=== PATIENT | female | born 1995 | race African-American/Black ===

== ENCOUNTER 2017-10-09 03:29 | Inpatient (IN) ==
--- NOTE | 2017-10-09 04:08 | ED ---
HPI General Stated complaint: Psych Eval [facility] Time Seen by Provider: 10/09/17 04:04 History of Present Illness HPI narrative: This is a 22-year-old female who presents under [place] act [place] by the [employer]. According to her paperwork she ingested 26 Advil tablets in attempt to hurt herself. The patient reports that she has been feeling depressed for "a long time" and tonight she was feeling worse. She denies doing anything else to hurt herself. She was initially seen at [facility] medical. Prior to being transferred here for psychiatric evaluation. Symptoms are moderate with no obvious aggravating or alleviating factors. Denies any drug or alcohol use, homicidal ideation, hallucinations. She has no medical complaints at this time. Related Data Previous Rx's Medication Instructions Recorded naproxen [Naprosyn] 500 mg PO Q12H PRN #20 tab 08/27/17 Allergies Allergy/AdvReac Type Severity Reaction Status Date / Time No Known Drug Allergies Allergy Unknown Verified 07/26/17 00:38 Review of Systems ROS: all other systems reviewed are negative PMFSH Social History Social History Smoking Status: Never smoker How Often Do You Have a Drink Containing Alcohol: Never Exam Narrative Exam Narrative: GENERAL: Well-developed well-nourished female no acute distress SKIN: Warm and dry. HEAD: Atraumatic. Normocephalic. EYES: Pupils equal and round. No scleral icterus. No injection or drainage. ENT: No nasal bleeding or discharge. Mucous membranes pink and moist. NECK: Trachea midline. No JVD. CARDIOVASCULAR: Regular rate and rhythm. No murmur appreciated. RESPIRATORY: No accessory muscle use. Clear to auscultation. Breath sounds equal bilaterally. GASTROINTESTINAL: Abdomen soft, non-tender, nondistended. Hepatic and splenic margins not palpable. MUSCULOSKELETAL: No obvious deformities. No clubbing. No cyanosis. No edema. NEUROLOGICAL: Awake and alert. No obvious cranial nerve deficits. Motor grossly within normal limits. Normal speech. PSYCHIATRIC: Depressed mood. Insight and judgment normal. Medical Decision Making MDM Narrative Medical decision making narrative: Mental health screening discussed with the patient. Psychiatric screen ordered. I reviewed the patient's lab work and her EKG from the transferring hospital. Drug screen is positive for cannabinoids. The patient remains medically cleared. Medical Screen Exam Complete: Yes Emergency Medical Condition: Yes Differential Diagnosis Differential Diagnosis: Adjustment reaction, major depressive disorder, depressive disorder not otherwise specified, acute psychosis, substance-induced mood disorder Discharge Plan Discharge Disposition Patient Disposition: 30 Still Patient Discharge Condition Condition: Stable Discharge Details Diagnosis: Encounter for medical clearance for patient hold Physicians Team ED Provider: Richard Sanders ED Midlevel Provider: Valentin Leroy Rxs /Orders / Referrals /Forms Prescriptions: No Action naproxen [Naprosyn] 500 mg tablet 500 mg PO Q12H PRN (Reason: pain) Qty: 20 RF: 0 Status ED Status: With Doctor
[2017-10-09] MEDS ORDERED: Bisacodyl 10 MG Supp RECTAL PRN (10:35)
[2017-10-09] MEDS ORDERED: Aluminum/Magnesium/Simethacone Susp 30 ML UDC PO PRN (10:35)
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
[2017-10-09] MEDS: Sertraline 50 MG Tablet PO SCH (18:56)
[2017-10-09] MEDS: Senna/Docusate Sodium 8.6/50 MG Tablet PO SCH (21:49)
[2017-10-09] MEDS: HYDROCORTISONE LEFT EAR SCH (21:59)
[2017-10-09] MEDS: ACETIC ACID LEFT EAR SCH (21:59)
[2017-10-10] MEDS: ACETIC ACID LEFT EAR SCH ×3 (06:00→22:00)
[2017-10-10] MEDS: HYDROCORTISONE LEFT EAR SCH ×3 (06:00→22:00)
[2017-10-10] MEDS: Sertraline 50 MG Tablet PO SCH (09:00)
[2017-10-10] MEDS: Senna/Docusate Sodium 8.6/50 MG Tablet PO SCH ×2 (09:01→20:35)
[2017-10-10] MEDS: Lactobacillus Acidophilus/L. Spores Tablet PO SCH ×3 (09:01→17:58)
[2017-10-10 11:01] LABS: Anion Gap 9 meq/L (5-15); Blood Urea Nitrogen 7 mg/dL (7-18); Calcium 9.2 mg/dL (8.5-10.1); Carbon Dioxide 29.2 meq/L (21.0-32.0); Chloride 103 meq/L (98-107); Cholesterol 129 mg/dL (120-200); Glomerular Filtration Rate Greater Than 89 mL/min (>89); Glucose,Random 109 mg/dL (74-106); Potassium 3.9 meq/L (3.5-5.1); Sodium 141 meq/L (136-145); Triglycerides 34 mg/dL (42-150)
[2017-10-10 11:04] LABS: Chol/HDL Ratio 2.59 Ratio; HDL Cholesterol 49.7 mg/dL (40.0-60.0); LDL Cholesterol,Calculated 73 mg/dL (0-99)
[2017-10-10 11:49] LABS: Hemoglobin A1c 5.1 % (4.3-6.0)
--- NOTE | 2017-10-10 14:14 | P.CON ---
History of Present Illness Service: [facility] Consult date: 10/10/17 Reason for Consult: Medical management ear ache Primary Care Provider: No Primary Care Physician Chief Complaint: Left ear pain History of Present Illness: Patient is a very pleasant 22-year-old female who is admitted under psychiatry service under [place] act. Patient has history of depression. Admitted under psychiatry because of [place] act. Patient tried to "commit suicide by taking 25 pills of Advil 200 mg. Was admitted yesterday. At the ER complained of left ear pain since yesterday. States it is hurting. Denies any decreased hearing sensation. No fever no chills. No history of same pain before. Patient was empirically started on amoxicillin and otic drops last evening. On today's exam patient states pain in the ear is much better. Denies any drainage. No jaw pain. On further inquiry patient is sexually active. She has menstrual cycles that are regular her last LMP was in September 05 usual 5 days duration. Patient states has not had his a slight cycle for this month. No nausea no vomiting. Review of Systems No fever no chills no headaches no nausea no vomiting no melena no edema skin no leg swelling PMFSH - History History Provided By: Patient - Medical / Surgical Hx Neg / Unobtainable Medical Problems Denied: Yes (History of depression. Denies any history of hypertension hypothyroidism.) Surgical History: No Previous Surgery - Tobacco History Second Hand Smoke Exposure: Yes Tobacco Use In Past 30 Days: Yes Smoking Status: Current some day smoker Tobacco Type: Cigarettes - Alcohol History How Often Do You Have a Drink Containing Alcohol: Never - Substance Use History Substance History: No History of Abuse - Substance Use Type Marijuana Status: Active Route Used: Inhalation Reason for Use: Calm Down, Get High Medications and Allergies Active Medications: Active Medications Acetic Acid/Hydrocortisone (Vosol Hc Otic Drops) 3 drop LEFT EAR Q8HR [facility] Last Admin: 10/10/17 13:10 Dose: 3 drop Al Hydrox/Mg Hydrox/Simethicone (Mag-Al Plus Susp Liq) 30 ml PO Q6H PRN PRN Reason: DYSPEPSIA Al Hydroxide/Mg Hydroxide (Milk Of Magnesia Liq) 30 ml PO Q12H PRN PRN Reason: Mild Constipation Amoxicillin (Amoxil) 500 mg PO TID [facility] Last Admin: 10/10/17 13:10 Dose: 500 mg Bisacodyl (Dulcolax Supp) 10 mg RECTAL DAILY PRN PRN Reason: SEVERE CONSITIPATION Lactobacillus Acidophilus (Lactinex) 1 tab PO TID [facility] Last Admin: 10/10/17 13:09 Dose: 1 tab Lactulose (Lactulose Liq) 30 ml PO DAILY PRN PRN Reason: SEVERE CONSITIPATION Senna/Docusate Sodium (Di-Colace) 1 tab PO BID [facility] Last Admin: 10/10/17 09:01 Dose: Not Given Sennosides (Senokot) 17.2 mg PO Q12H PRN PRN Reason: Moderate Constipation Sertraline HCl (Zoloft) 25 mg PO DAILY [facility] Last Admin: 10/10/17 09:00 Dose: 25 mg Tramadol HCl (Ultram) 50 mg PO Q6H PRN PRN Reason: PAIN SCALE 1-10 Allergies Allergy/AdvReac Type Severity Reaction Status Date / Time ibuprofen [From Advil] Allergy Swelling Verified 10/09/17 04:13 Home Medications Medication Instructions Recorded Confirmed Type No Known Home Medications 10/09/17 10/09/17 History Physical Exam Vital signs: Vital Signs 10/09/17 18:03 10/10/17 06:23 Temperature 98.5 F 97.4 F L Pulse Rate 75 71 Respiratory Rate 16 Blood Pressure 109/64 125/69 Pulse Oximetry 99 Intake & Output 10/09/17 10/10/17 10/10/17 18:59 06:59 18:59 Weight 61.8 kg Other: Weight On Admission 61.8 kg Narrative: Patient is awake alert oriented 3 not in any form of distress. Speech clear and coherent Interactive Anicteric sclerae pink palpebral conjunctiva otoscopy. Right ear clear intact tympanic membrane no tragal tenderness good cone of light Left ear mild swelling of the ear canal. No tragal tenderness. Intact tympanic membrane well visualized good cone of light no erythema good cone of light. slight tenderness and pain elicited when on when the otoscope advanced. Inside the left ear canal Very mild swelling of the ear canal compared to the right Neck was supple no nuchal rigidity Lungs clear Regular rhythm Abdomen soft Extremities no edema Assessment and Plan - Plan 22-year-old female admitted under psychiatry for Depression [place] act per psychiatry management. Status post NSAIDs ingestion 25 pills of Advil 200 mg daily. Patient denies any melena or hematochezia or abdominal pain We will start patient on Zantac 150 twice a day Left otitis externa clinically improved. Will continue on amoxicillin plus otic drops course And monitor. Delayed/missed menstrual cycle. Patient concerned about possibly being . States that her cycles are regular. Will get a test. Thank you for this consult will follow patient in-house with you
--- NOTE | 2017-10-10 15:32 | P.PNPSY ---
Subjective Remarks: This is a request for second opinion. Admission note was reviewed and I agree with the history. Patient was seen and case was discussed with nursing. We discussed patient's psychosocial stressors. She admitted to overdosing on 26 Advil pills. Today she is saying her mood has improved she denies suicidal or homicidal ideation intent or plan. She is tolerating her antidepressant well. Behaving well on the unit. Appetite is poor Mental Status Examination Appearance: Appropriate Consciousness: Alert Orientation: x4 Motor Activity: Normal gait Speech: Unremarkable Language: Adequate Fund of Knowledge: Adequate Attention and Concentration: Adequate Memory: Unremarkable Mood: Sad Affect: Sad Thought Process & Associations: Intact Thought Content: Appropriate Hallucination Type: None Delusion Type: None Suicidal Ideation: No Suicidal Plan: No Suicidal Intention: No Homicidal Ideation: No Homicidal Plan: No Homicidal Intention: No Insight: Poor Judgment: Poor Assessment and Plan - Assessment (1) Adjustment disorder Code(s): F43.20 - Adjustment disorder, unspecified Status: Acute - Plan Plan: I agree with the first opinion to continue petition. Criteria include suicide attempt Justification for Continued Inpatient Stay: Patient would decompensate in a less restrictive setting (1) Adjustment disorder Qualifiers: Adjustment disorder type: with anxious mood Qualified Code(s): F43.22 - Adjustment disorder with anxiety
[2017-10-11] MEDS: ACETIC ACID LEFT EAR SCH ×3 (06:26→22:27)
[2017-10-11] MEDS: HYDROCORTISONE LEFT EAR SCH ×3 (06:26→22:27)
[2017-10-11] MEDS: Lactobacillus Acidophilus/L. Spores Tablet PO SCH ×2 (08:25→12:37)
[2017-10-11] MEDS: Sertraline 50 MG Tablet PO SCH (08:25)
[2017-10-11] MEDS: Senna/Docusate Sodium 8.6/50 MG Tablet PO SCH ×2 (08:28→23:14)
--- NOTE | 2017-10-11 13:48 | P.PNPSY ---
Subjective Remarks: Patient was seen and case discussed with nursing. Patient is pleasant and cooperative with exam. She describes her mood as "she is perseverative on discharge. She describes her attempt was a mistake. She denies suicidal or homicidal ideation intent or plan. Compliant with medications Mental Status Examination Appearance: Appropriate Consciousness: Alert Orientation: x4 Motor Activity: Normal gait Speech: Unremarkable Language: Adequate Fund of Knowledge: Adequate Attention and Concentration: Adequate Memory: Unremarkable Mood: Sad Affect: Sad Thought Process & Associations: Intact Thought Content: Appropriate Hallucination Type: None Delusion Type: None Suicidal Ideation: No Suicidal Plan: No Suicidal Intention: No Homicidal Ideation: No Homicidal Plan: No Homicidal Intention: No Insight: Poor Judgment: Poor Assessment and Plan - Assessment (1) Adjustment disorder Code(s): F43.20 - Adjustment disorder, unspecified Status: Acute - Plan Plan: Continue current treatment plan Justification for Continued Inpatient Stay: Patient would decompensate in a less restrictive setting (1) Adjustment disorder Qualifiers: Adjustment disorder type: with anxious mood Qualified Code(s): F43.22 - Adjustment disorder with anxiety
--- NOTE | 2017-10-11 16:34 | P.PN ---
Subjective Interval history: follow up for left earache-today earache resolved, c/o right bottom tooth pain, states she pulled tooth 2-3 years ago. Afraid of needles therefore she has not seen dentist. No fever. Eating okay. No swallowing problems. Swelling noted to right mandible. pt. states she has menses now Physical Exam Vital signs: Vital Signs 10/10/17 18:40 10/11/17 06:49 Temperature 97.7 F 97.9 F Pulse Rate 69 66 Respiratory Rate 18 16 Blood Pressure 109/70 125/78 Pulse Oximetry 98 98 Narrative: GENERAL: Well-nourished, well-developed patient in no apparent distress. SKIN: Warm and dry. HEAD: Atraumatic. Normocephalic. EYES: Pupils equal and round. No scleral icterus. No injection or drainage. ENT: No nasal bleeding or discharge. Mucous membranes pink and moist. Right bottom gum noted with small abscess, molar missing. Swelling noted to right mandible, tender to palpation. CARDIOVASCULAR: Regular rate and rhythm. RESPIRATORY: No accessory muscle use. Clear to auscultation. Breath sounds equal bilaterally. MUSCULOSKELETAL: Extremities without clubbing, cyanosis, or edema. No obvious deformities. NEUROLOGICAL: Grossly intact. PSYCHIATRIC: Cooperative, pleasant Results - Labs CBC & Chem 7: 10/10/17 09:40 Assessment and Plan - Plan 22-year-old female who is admitted under psychiatry service under [place] act. Patient has history of depression. Admitted under psychiatry because of [place]. Patient tried to "commit suicide by taking 25 pills of Advil 200 mg. At the ER complained of left ear pain since yesterday. Patient was empirically started on amoxicillin and otic drops last evening. On further inquiry patient is sexually active. She has menstrual cycles that are regular her last LMP was in September 05 usual 5 days duration. Patient states has not had his a slight cycle for this month. No nausea no vomiting. Depression [place] per psychiatry management. -continue with psychiatry management -started on Zoloft Status post NSAIDs ingestion 25 pills of Advil 200 mg daily. Patient denies any melena or hematochezia or abdominal pain -continue Zantac 150 twice a day Left otitis externa clinically improved. -Will continue on amoxicillin plus otic drops course Dental abscess, pulled tooth 2-3 years ago. States she still has root. -needs to follow up with dentist as OP -continue Amoxicillin for 7 days, rx in chart -Peridex rinse BID Delayed/missed menstrual cycle. - test negative -pt. has menses now Will sign off, reconsult if needed
[2017-10-12] MEDS: Chlorhexidine 0.12% Oral Kit 15 ML UDC OROPHARYNG SCH ×2 (04:45→09:09)
[2017-10-12] MEDS: ACETIC ACID LEFT EAR SCH ×2 (06:28→14:04)
[2017-10-12] MEDS: HYDROCORTISONE LEFT EAR SCH ×2 (06:28→14:04)
[2017-10-12] MEDS: Sertraline 50 MG Tablet PO SCH (09:09)
[2017-10-12] MEDS: Lactobacillus Acidophilus/L. Spores Tablet PO SCH ×2 (09:10→14:04)
[2017-10-12] MEDS: Senna/Docusate Sodium 8.6/50 MG Tablet PO SCH (09:11)
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
== END 2017-10-12 14:40 | disposition home or self-care (01) ==
LOC: NEPJ 03:29 → NEDA 11:45 → H270 14:25 → NEDA 14:26 → H260 10-11 19:38
PROVIDERS: ADMIT Psychiatry & Neurology Psychiatry; ATTEND Psychiatry & Neurology Psychiatry